=== PATIENT | male | born 1960 | race Caucasian/White ===

== ENCOUNTER 2022-05-11 00:46 | Day surgery (SDC) | payer BC, SELFPAY ==
[2022-04-27 10:28] VITALS: BMI 29.2
[2022-05-11 07:40] VITALS: BP 129/76; PULSE 67; RESP 19; TEMP 36.5; O2SAT 99
[2022-05-11] MEDS: LACTATED RINGERS 1,000 ML 150 ML IV CONT (07:49)
--- NOTE | 2022-05-11 07:55 | PM.HPGS ---
History of Present Illness History of Present Illness Consent: Risks, benefits, and alternatives have been discussed and questions answered. Patient agrees to proceed with procedure. Chief complaint: hx colon polyps Narrative: Johnathan Hamilton is a 62 year old male Presents for screening colonoscopy. Patient's current weight appetite and bowel movements are normal. She he denies abdominal pain. Patient's last colonoscopy 2013 showed rectal polyps performed by Dr. Arevalo. Patient reports his mother had colon cancer. Patient presents today for neoplasia screening colonoscopy. Review of Systems Review of Systems: Review of systems noncontributory. [facility] Past Medical History Medical History Obesity (BMI 30.0-34.9) Family History Family History Mother Patient's mother is Father Patient's father is Other Carcinoma of colon Social History Social History Smoking status: Never smoker Alcohol intake: never Alcohol use details: Occasionally Substance use type: does not use Living arrangements: with family Spiritual care concerns: No Meds Home Medications and Allergies Home Medications Medication Instructions Recorded Confirmed Type aspirin 81 mg tablet,delayed 81 mg PO DAILY 12/06/21 05/11/22 History release (Adult Low Dose Aspirin) ligijpgn-debrvyag-hdxkl acid 400 1 tablet PO .prn 12/06/21 05/11/22 History mcg-vit K 20 mcg-lycop 300 mcg tablet (Men's Multivitamin) atorvastatin 20 mg tablet 20 mg PO QHS #90 tabs 12/11/21 05/11/22 Rx Allergies Allergy/AdvReac Type Severity Reaction Status Date / Time No Known Allergies Allergy Verified 05/11/22 07:39 Vital Signs Vital Signs - 24 hr 05/11/22 07:40 Temperature 97.7 F Pulse Rate 67 Respiratory Rate 19 Blood Pressure 129/76 Pulse Oximetry 99 Oxygen Delivery Room Air Exam Narrative: Physical exam reveals patient be alert. Vital signs stable. HEENT exam is unremarkable. Patient is anicteric. Lungs are clear to auscultation and percussion. Heart is without murmur or extra sounds. Abdomen bowel sounds are present soft nontender with no organomegaly. Digital external rectal exam is normal. Assessment and Plan Assessment and plan (1) History of colon polyps: Code(s): Z86.010 - Personal history of colonic polyps Status: Acute Assessment and Plan: Patient has a history of colon polyps in 2013. Plan for surveillance colonoscopy, suggested at 5 year intervals. Further recommendations will be given after endoscopy. (2) Family history of colon cancer in mother: Code(s): Z80.0 - Family history of malignant neoplasm of digestive organs Status: Acute Assessment and Plan: Patient's mother had colon cancer this fact along with history of colon polyps would suggest follow-up colonoscopy at 5 year intervals.
--- NOTE | 2022-05-11 08:19 | WPDANESEPPF ---
Anes - Initial Pre Proc Eval Procedure: Operation Date: 05/11/22 08:45 Proposed Procedures p Screening Colonoscopy - Torin Gutierrez MD Date/Time: 05/11/22 08:19 Surgeon: Torin Gutierrez MD Pre Op Diagnosis: hx colon polyps Patient Data Age: 62 Gender: M Height: 1.68 m Weight: 85.3 kg Last Vital Signs Temp 97.7 F 05/11/22 07:40 Pulse 67 05/11/22 07:40 Resp 19 05/11/22 07:40 BP 129/76 05/11/22 07:40 Pulse Ox 99 05/11/22 07:40 O2 Del Method Room Air 05/11/22 07:40 Allergies Allergy/AdvReac Type Severity Reaction Status Date / Time No Known Allergies Allergy Verified 05/11/22 07:39 Home Medications Medication Instructions Recorded Confirmed Type aspirin 81 mg tablet,delayed 81 mg PO DAILY 12/06/21 05/11/22 History release (Adult Low Dose Aspirin) mlrsbqhm-uezzmmlz-lxmlh acid 400 1 tablet PO .prn 12/06/21 05/11/22 History mcg-vit K 20 mcg-lycop 300 mcg tablet (Men's Multivitamin) atorvastatin 20 mg tablet 20 mg PO QHS #90 tabs 12/11/21 05/11/22 Rx Patient hx anesthesia problems: none Family hx anesthesia problems: none Results Review: All pre-operative results and documents have been reviewed as part of the pre-operative evaluation. [facility] Past Medical History Medical History Obesity (BMI 30.0-34.9) Family History Family History Mother Patient's mother is Father Patient's father is Other Carcinoma of colon Social History Social History Smoking status: Never smoker Alcohol intake: never Alcohol use details: Occasionally Substance use type: does not use Living arrangements: with family Spiritual care concerns: No Anes - Eval Final PreProcedure Day of Procedure 05/11/22 08:19 Patient weight: obese Heart: regular rate and rhythm Lungs: clear to auscultation Airway: Mallampati scale class II Neurological: alert and oriented Last oral intake: >/= 8 hours ASA classification: II Emergent: no Anesthetic plan: proceed Anesthesia type and monitoring: general GIVS and standard monitoring Results Review: All pre-operative results and documents have been reviewed as part of the pre-operative evaluation. Informed Consent: The patient's anesthetic plan and its attendant risks and benefits were discussed with the patient/family/POA. Questions were solicited and answers provided to the satisfaction of the patient/family/POA.
[2022-05-11] MEDS: SIMETHICONE ORAL SUSPENSION 20 MG/0.3 ML 30 ML BOTTLE 0.6 ML IRRIGATION (08:48)
[2022-05-11 08:59] VITALS: BP 104/67; PULSE 86; RESP 26; O2SAT 97
[2022-05-11 09:09] VITALS: BP 106/75; PULSE 73; RESP 18; O2SAT 99
[2022-05-11 09:19] VITALS: BP 123/69; PULSE 68; RESP 17; O2SAT 100
== END 2022-05-11 09:27 | disposition home or self-care (01) ==
PROVIDERS: PCP Family Medicine; Visit Provider Internal Medicine Gastroenterology
PROC: 0DJD8ZZ Inspection of Lower Intestinal Tract, Via Natural or Artificial Opening Endoscopic (ICD-10-PCS; CPT 45378; principal; 2022-05-11 08:45)
DX: Z12.11 Encounter for screening for malignant neoplasm of colon (principal); Z86.010 Personal history of colon polyps; Z80.0 Family history of malignant neoplasm of digestive organs; K64.8 Other hemorrhoids; K57.30 Diverticulosis of large intestine without perforation or abscess without bleeding; Z79.82 Long term (current) use of aspirin; E66.9 Obesity, unspecified; Z68.30 Body mass index [BMI] 30.0-30.9, adult
CPT/HCPCS: 45378; J2001; J2704; J7120